=== PATIENT | female | born 1925 | race Caucasian/White ===

== ENCOUNTER 2017-06-04 09:48 | Emergency (ER) | payer MEDICARE ==
[~2017-06-04] VITALS: Ht 154.9 cm; Wt 60.8 kg
[~2017-06-04 09:48] MED LIST: ACET325T9 PO; ACET500T68 PO; AMLO-254 PO; AMLO10TA2 PO; ATEN50TA PO; CLON0.1T PO; DOCU100C28 PO; LANS30CA66 PO; LOPE2TAB27 PO; MECL25TA3 PO; OLME40TA12 PO; SERT25TA PO
[2017-06-04 10:00] VITALS: BP 160/75
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
[2017-06-04 10:30] LABS: BASO # 0.1 x10^3/uL (0.0-0.2); BASO % 1 % (0-3); EOS # 0.3 x10^3/uL (0.0-0.7); EOS % 4 % (0-3); HEMATOCRIT 33.7 % (36.0-47.0); HEMOGLOBIN 11.3 g/dL (12.0-15.5); LYMPH # 2.5 x10^3/uL (1.0-4.8); LYMPH % 29 % (24-48); MEAN CORPUSCULAR HEMOGLOBIN 28 pg (25-35); MEAN CORPUSCULAR HGB CONC 34 g/dL (31-37); MEAN CORPUSCULAR VOLUME 84 fL (79-100); MONO # 0.8 x10^3/uL (0.0-1.1); MONO % 9 % (0-9); NEUT % 58 % (31-73); PLATELET COUNT 435 x10^3/uL (140-400); RED BLOOD COUNT 4.02 x10^6/uL (3.50-5.40); RED CELL DISTRIBUTION WIDTH 13.8 % (11.5-14.5); WHITE BLOOD COUNT 8.7 x10^3/uL (4.0-11.0)
[2017-06-04 10:39] LABS: ALBUMIN 3.7 g/dL (3.4-5.0); ALBUMIN/GLOBULIN RATIO 0.7 (1.0-1.7); CALCIUM 9.1 mg/dL (8.5-10.1); CREATININE 1.3 mg/dL (0.6-1.0); GFR 38.6; TOTAL BILIRUBIN 0.3 mg/dL (0.2-1.0)
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
== END 2017-06-04 12:00 | disposition home or self-care (01) ==
LOC: ER 09:48
DX: R51 Headache (principal); M54.89 Other dorsalgia; R07.89 Other chest pain; I10 Essential (primary) hypertension; Z88.4 Allergy status to anesthetic agent; Z88.2 Allergy status to sulfonamides; Z88.1 Allergy status to other antibiotic agents; Z88.5 Allergy status to narcotic agent; Z88.8 Allergy status to other drugs, medicaments and biological substances; V49.9XXA Car occupant (driver) (passenger) injured in unspecified traffic accident, initial encounter; Y93.89 Activity, other specified; Y99.8 Other external cause status; Y92.481 Parking lot as the place of occurrence of the external cause
CPT/HCPCS: 36415; 70450; 71250; 72125; 72128; 74176; 80053; 85025; 99285-25

== ENCOUNTER 2017-06-27 15:47 | Emergency (ER) | payer MEDICARE ==
[~2017-06-27] VITALS: Ht 154.9 cm; Wt 60.8 kg
[~2017-06-27 15:47] MED LIST changes: -AMLO-254 PO; +AMLO-268 PO
--- NOTE | 2017-06-27 16:20 | RAD ---
Examination: 2 views of the left forearm and 3 views of the left elbow History: History of fall, pain Comparison: None available Findings: The alignment of the elbow joint grossly appears unremarkable. There is no acute fracture or dislocation identified. No significant elbow joint effusion identified. The alignment of the radius and ulna grossly appears unremarkable in the forearm. Impression: 1. No acute osseous findings.
[2017-06-27] MEDS ORDERED: ACET325T9 PO (16:22)
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
[2017-06-27 16:32] VITALS: BP 131/90
== END 2017-06-27 16:40 | disposition home or self-care (01) ==
LOC: ER 15:47
DX: S63.502A Unspecified sprain of left wrist, initial encounter (principal); S50.02XA Contusion of left elbow, initial encounter; I10 Essential (primary) hypertension; W18.30XA Fall on same level, unspecified, initial encounter; Y93.89 Activity, other specified; Y92.090 Kitchen in other non-institutional residence as the place of occurrence of the external cause; Y99.8 Other external cause status; Z88.6 Allergy status to analgesic agent; Z88.8 Allergy status to other drugs, medicaments and biological substances; Z88.1 Allergy status to other antibiotic agents; Z88.2 Allergy status to sulfonamides; Z88.0 Allergy status to penicillin; Z88.4 Allergy status to anesthetic agent; Z86.73 Personal history of transient ischemic attack (TIA), and cerebral infarction without residual deficits
CPT/HCPCS: 73080; 73090; 99284